=== PATIENT | male | born 1970 | race Caucasian/White ===

== ENCOUNTER 2019-01-09 16:11 | Observation (INO) ==
--- NOTE | 2019-01-09 16:38 | Emergency Department Note ---
Disposition Clinical Impression: Cholecystitis Disposition: Admitted As Inpatient Condition: Fair Referrals: NONE,PCP [Primary Care Provider] - Forms: ED Satisfaction Letter, Work/School Release Time of Disposition: 18:17 Abdominal Pain HPI - General Chief Complaint: ED Abdominal Pain Stated Complaint: abd pain Time Seen by Provider: 01/09/19 16:28 Source: patient Nursing Notes Reviewed: Yes Vital Signs Reviewed: Yes - History of Present Illness HPI Narrative: 48-year-old male presents emergency department with concern for right upper quadrant abdominal pain for the last few days. Patient states it started after eating pizza. Reports that he was seen in outside facility where he had a negative gallbladder ultrasound. Patient reports that the abdominal pain is sharp and radiates up his chest wall. Patient reports never feeling this way before. He denies any fevers, shortness of breath, does endorse nausea, vomiting. Pain Scale: 0 - Related Data Allergies Allergy/AdvReac Type Severity Reaction Status Date / Time No Known Allergies Allergy Verified 01/09/19 16:17 All systems ED: reviewed and negative except as stated. Review of Systems: As Per HPI Constitutional: Denies: fever Cardiovascular: Denies: chest pain Respiratory: Denies: cough, dyspnea Gastrointestinal: Reports: abdominal pain, nausea, vomiting Genitourinary: Denies: dysuria, hematuria Musculoskeletal: Denies: back pain Neurological: Denies: weakness, numbness, paresthesias Abdominal Pain PMH - Past Medical History Medical history: Reports: no medical history Physical Exam - General Limitations: no limitations General appearance: alert, in no apparent distress - Head Head exam: normocephalic - Eye Eye exam: Present: EOMI. Absent: scleral icterus - ENT ENT exam: mucous membranes moist - Neck Neck exam: Present: trachea midline - Chest Chest inspection: Present: symmetric chest wall rise - Respiratory Respiratory exam: Present: normal lung sounds bilaterally. Absent: respiratory distress, accessory muscle use - Cardiovascular Cardiovascular exam: Present: tachycardia - Abdominal Exam Abdominal exam: Present: soft, tenderness, Tolentino's sign. Absent: distention, guarding, rebound, rigidity Abdominal tenderness: Present: RUQ, moderate - Extremities Exam Extremities exam: Present: normal capillary refill - Back Exam Back exam: Present: full ROM. Absent: CVA tenderness (R), CVA tenderness (L) - Neurological Exam Neurological exam: Present: alert, oriented X3 - Psychiatric Psychiatric exam: Present: normal affect, normal mood - Skin Skin exam: Present: warm, dry, intact, normal color. Absent: rash Course Vital Signs Temperature 98.0 F 01/09/19 16:15 Pulse Rate 113 01/09/19 16:15 Respiratory Rate 16 01/09/19 16:15 Blood Pressure 148/91 01/09/19 16:15 O2 Sat by Pulse Oximetry 96 01/09/19 16:15 Temperature 98.0 F 01/09/19 16:56 Pulse Rate 113 01/09/19 16:56 Respiratory Rate 16 01/09/19 16:56 Blood Pressure 148/91 01/09/19 16:56 O2 Sat by Pulse Oximetry 96 01/09/19 16:56 Oxygen Delivery Oxygen Delivery Room Air Procedures - Ultrasound-Other Narrative: Bedside emergency department ultrasound reveals evidence of cholelithiasis. There is also a positive Tolentino sign with some sludge within the lumen of the gallbladder. Common bile duct is not visualized due to acoustic shadowing from the gallstone. No evidence of pericholecystic fluid Abdominal Pain - MDM Narrative Medical decision making narrative: 48-year-old male presents emergency department with concern for right upper quadrant abdominal pain. Patient is mildly tachycardic on initial exam. We obtain CT scan of abdomen and pelvis revealed evidence of cholecystitis. There was also evidence of possible atelectasis versus pneumonia. Do not suspect pneumonia as clinical picture is more towards cholecystitis and due to his discomfort, patient's breathing may have been splinted leading to atelectasis. We also obtain an ECG as the pain radiated upwards into the chest. ECG did not reveal any evidence of acute ischemic changes. Troponin was negative. D-dimer was mildly elevated, but in the setting of cholecystitis, this is expected. Patient was given fluids here in the emergency department as well as pain medication. We started Zosyn. Patient admitted to Dr. Zhang, general surgeon. Abdomen/Pelvis CT 01/09/19 16:38 IMPRESSION: 1. Some distention of the gallbladder, cholelithiasis and gallbladder wall thickening raises the possibility of acute cholecystitis. 2. Diffuse fatty infiltration of the liver. 3. No acute gastrointestinal abnormality. 4. Right lower lobe infiltrate/atelectasis. Minimal atelectasis left lower lobe. RECOMMENDATIONS: Gallbladder ultrasound. D/ / 01/09/2019 17:13:54 Rylee Lowe MD / jose carlos Interpreting Provider: Rylee Lowe MD - Lab Data Result diagrams: 01/09/19 16:49 01/09/19 16:49 Lab Results 01/09/19 01/09/19 01/09/19 Range/Units 16:40 16:49 16:49 WBC 13.7 H (4.3-11.1) K/mcL RBC 5.18 (4.19-5.50) M/mcL Hgb 16.1 (12.9-16.9) g/dL Hct 47.1 (37.5-50.1) % MCV 90.9 (83.0-100.0) fL MCH 31.1 (28.0-33.3) pg MCHC 34.2 (31.6-35.5) g/dL RDW 12.5 (11.5-14.5) % Plt Count 227 (140-400) K/mcL MPV 11.2 (9.4-12.4) fL Immature Gran % 0.4 (0-4) % Seg Neutrophils % 72.0 % Lymphocytes % 16.0 % Monocytes % 9.4 % Eosinophils % 1.8 % Basophils % 0.4 % Neutrophils # 9.9 H (1.6-8.9) K/mcL Lymphocytes # 2.2 (0.6-4.6) K/mcL Monocytes # 1.3 (0.0-1.3) K/mcL Eosinophils # 0.2 (0.0-0.6) K/mcL Basophils # 0.1 (0.0-0.2) K/mcL D-Dimer 825 H (0-500) ng/mLFEU Sodium (136-145) mEq/L Potassium (3.5-5.1) mEq/L Chloride (98-107) mEq/L Carbon Dioxide (23-29) mEq/L BUN (6-20) mg/dL Creatinine (0.70-1.30) mg/dL Est GFR ( Amer) (> 60) Est GFR (Non-Af Amer) (> 60) BUN/Creatinine Ratio (6-26) Glucose (70-105) mg/dL Calculated Osmolality (280-300) Lactic Acid (0.5-2.2) mmol/L Calcium (8.6-10.3) mg/dL Total Bilirubin (0.3-1.0) mg/dL AST (13-39) Units/L ALT (7-52) Units/L Alkaline Phosphatase (34-104) Units/L Troponin I (< 0.04) ng/mL Serum Total Protein (6.4-8.9) g/dL Albumin (3.5-5.7) g/dL Globulin (2.4-3.5) g/dL Albumin/Globulin Ratio (1.1-2.2) Lipase (11-82) Units/L Urine Color Dark Yellow (Yellow) Urine Clarity Clear (Clear) Urine pH 6.0 (5.0-8.0) pH Units Ur Specific [place] > 1.030 H (1.010-1.025) Urine Protein 30 H (Neg-Trace) mg/dL Urine Glucose (UA) Normal (Normal) mg/dL Urine Ketones Negative (Negative) mg/dL Urine Blood Negative (Negative) Urine Nitrite Negative (Negative) Urine Bilirubin Small H (Negative) Urine Urobilinogen Normal (Normal) mg/dL Ur Leukocyte Esterase Negative (Negative) Urine Microscopic RBC 5-15 H (0-3) per hpf Urine Microscopic WBC 3-5 H (0-3) per hpf Ur Squamous Epith Cells Many H (None-Few) per lpf Urine Bacteria None Seen (None-Few) per hpf Hyaline Casts None Seen (None-Few) per lpf Ur Culture Indicated? NO (NO) 01/09/19 01/09/19 Range/Units 16:49 17:11 WBC (4.3-11.1) K/mcL RBC (4.19-5.50) M/mcL Hgb (12.9-16.9) g/dL Hct (37.5-50.1) % MCV (83.0-100.0) fL MCH (28.0-33.3) pg MCHC (31.6-35.5) g/dL RDW (11.5-14.5) % Plt Count (140-400) K/mcL MPV (9.4-12.4) fL Immature Gran % (0-4) % Seg Neutrophils % % Lymphocytes % % Monocytes % % Eosinophils % % Basophils % % Neutrophils # (1.6-8.9) K/mcL Lymphocytes # (0.6-4.6) K/mcL Monocytes # (0.0-1.3) K/mcL Eosinophils # (0.0-0.6) K/mcL Basophils # (0.0-0.2) K/mcL D-Dimer (0-500) ng/mLFEU Sodium 138 (136-145) mEq/L Potassium 3.7 (3.5-5.1) mEq/L Chloride 104 (98-107) mEq/L Carbon Dioxide 26 (23-29) mEq/L BUN 19 (6-20) mg/dL Creatinine 1.14 (0.70-1.30) mg/dL Est GFR ( Amer) > 60 (> 60) Est GFR (Non-Af Amer) > 60 (> 60) BUN/Creatinine Ratio 17 (6-26) Glucose 97 (70-105) mg/dL Calculated Osmolality 288 (280-300) Lactic Acid 0.9 (0.5-2.2) mmol/L Calcium 8.9 (8.6-10.3) mg/dL Total Bilirubin 1.0 (0.3-1.0) mg/dL AST 15 (13-39) Units/L ALT 22 (7-52) Units/L Alkaline Phosphatase 71 (34-104) Units/L Troponin I < 0.03 (< 0.04) ng/mL Serum Total Protein 6.8 (6.4-8.9) g/dL Albumin 3.9 (3.5-5.7) g/dL Globulin 2.9 (2.4-3.5) g/dL Albumin/Globulin Ratio 1.3 (1.1-2.2) Lipase 38 (11-82) Units/L Urine Color (Yellow) Urine Clarity (Clear) Urine pH (5.0-8.0) pH Units Ur Specific [place] (1.010-1.025) Urine Protein (Neg-Trace) mg/dL Urine Glucose (UA) (Normal) mg/dL Urine Ketones (Negative) mg/dL Urine Blood (Negative) Urine Nitrite (Negative) Urine Bilirubin (Negative) Urine Urobilinogen (Normal) mg/dL Ur Leukocyte Esterase (Negative) Urine Microscopic RBC (0-3) per hpf Urine Microscopic WBC (0-3) per hpf Ur Squamous Epith Cells (None-Few) per lpf Urine Bacteria (None-Few) per hpf Hyaline Casts (None-Few) per lpf Ur Culture Indicated? (NO) - EKG Data EKG attestation: Yes I reviewed and interpreted this EKG. EKG results narrative: 16:47 Heart rate 106 bpm, UT interval 149 ms, QRS duration 93 ms, QT 329 ms, normal axis. No evidence of any ischemic ST changes. Attestation Statement - Attestation Attestation: I, Colt Soto DO, examined this patient [id number] and my medical decision-making was reviewed with Dr. Jeff Alamo, Resident Physician. I agree with the documented findings, disposition and treatment plan as described except to the extent set forth below. I personally supervised and was present for the de la cruz/critical portions of the procedures completed by the resident documented below. Please see my progress notes for details.
[2019-01-09] MEDS ORDERED: Ondansetron 4 MG/2 ML VIAL IVP ONE (16:40)
[2019-01-09] MEDS ORDERED: 0.9 % Sodium Chloride 1,000 ML IVC ONE (16:40)
[2019-01-09] MEDS ORDERED: Pantoprazole 40 MG VIAL IVP ONE (16:40)
[2019-01-09] MEDS ORDERED: Morphine Sulfate 2 MG/ML SYRINGE IVP ONE (16:41)
[2019-01-09 16:49] LABS: Bilirubin,Urine Small (Negative); Blood,Urine Negative (Negative); Clarity,Urine Clear (Clear); Color,Urine Dark Yellow (Yellow); Glucose,Urine (UA) Normal (Normal); Ketones,Urine Negative (Negative); Leukocyte Esterase,Urine Negative (Negative); Nitrite,Urine Negative (Negative); Protein,Urine 30 mg/dL (Neg-Trace); Specific Gravity,Urine > 1.030 (1.010-1.025); Urobilinogen,Urine Normal (Normal)
[2019-01-09 16:51] LABS: Bacteria,Urine None Seen per hpf (None-Few); Hyaline Casts,Urine None Seen per lpf (None-Few); Squamous Epithelial Cell,Urine Many per lpf (None-Few)
[2019-01-09 17:09] LABS: Basophils # 0.1 K/mcL (0.0-0.2); Basophils % 0.4 %; Eosinophils # 0.2 K/mcL (0.0-0.6); Eosinophils % 1.8 %; Hematocrit 47.1 % (37.5-50.1); Hemoglobin 16.1 g/dL (12.9-16.9); Immature Granulocytes % 0.4 % (0-4); Lymphocytes # 2.2 K/mcL (0.6-4.6); Mean Corpuscular HGB Conc 34.2 g/dL (31.6-35.5); Mean Corpuscular Hemoglobin 31.1 pg (28.0-33.3); Mean Corpuscular Volume 90.9 fL (83.0-100.0); Mean Platelet Volume 11.2 fL (9.4-12.4); Monocytes # 1.3 K/mcL (0.0-1.3); Monocytes % 9.4 %; Neutrophils # 9.9 K/mcL (1.6-8.9); Platelet Count 227 K/mcL (140-400); Red Blood Count 5.18 M/mcL (4.19-5.50); Red Cell Distribution Width 12.5 % (11.5-14.5); White Blood Count 13.7 K/mcL (4.3-11.1)
--- NOTE | 2019-01-09 17:11 | Emergency Department Note ---
Disposition Clinical Impression: Cholecystitis Disposition: Admitted As Inpatient Condition: Fair Time of Disposition: 18:33 General Adult HPI - General Chief complaint: ED Abdominal Pain Stated complaint: abd pain Time Seen by Provider: 01/09/19 16:28 Source: patient Limitations: no limitations - History of Present Illness Pain Scale: 7 - Related Data Home Medications Medication Instructions Recorded Confirmed No Known Home Drugs 01/09/19 01/09/19 Allergies Allergy/AdvReac Type Severity Reaction Status Date / Time No Known Allergies Allergy Verified 01/09/19 16:17 Constitutional: Denies: fever Cardiovascular: Denies: chest pain Respiratory: Denies: cough, dyspnea Gastrointestinal: Reports: abdominal pain, nausea, vomiting Genitourinary: Denies: dysuria, hematuria Musculoskeletal: Denies: back pain Neurological: Denies: weakness, numbness, paresthesias Past Medical History - Past Medical History Medical history: Reports: hypertension Psychiatric history: Reports: no psych history - Social History Smoking Status: Never smoker Alcohol use: Reports: none Drug use: Reports: none Physical Exam - General Limitations: no limitations General appearance: alert, in no apparent distress Course Vital Signs Temperature 98.0 F 01/09/19 16:15 Pulse Rate 113 01/09/19 16:15 Respiratory Rate 16 01/09/19 16:15 Blood Pressure 148/91 01/09/19 16:15 O2 Sat by Pulse Oximetry 96 01/09/19 16:15 Temperature 98.0 F 01/09/19 16:56 Pulse Rate 94 01/09/19 18:17 Respiratory Rate 17 01/09/19 18:17 Blood Pressure 147/90 01/09/19 18:17 O2 Sat by Pulse Oximetry 97 01/09/19 18:17 Oxygen Delivery Oxygen Delivery Room Air Medical Decision Making - Lab Data Result diagrams: 01/09/19 16:49 01/09/19 16:49 Lab Results 01/09/19 01/09/19 01/09/19 Range/Units 16:40 16:49 16:49 WBC 13.7 H (4.3-11.1) K/mcL RBC 5.18 (4.19-5.50) M/mcL Hgb 16.1 (12.9-16.9) g/dL Hct 47.1 (37.5-50.1) % MCV 90.9 (83.0-100.0) fL MCH 31.1 (28.0-33.3) pg MCHC 34.2 (31.6-35.5) g/dL RDW 12.5 (11.5-14.5) % Plt Count 227 (140-400) K/mcL MPV 11.2 (9.4-12.4) fL Immature Gran % 0.4 (0-4) % Seg Neutrophils % 72.0 % Lymphocytes % 16.0 % Monocytes % 9.4 % Eosinophils % 1.8 % Basophils % 0.4 % Neutrophils # 9.9 H (1.6-8.9) K/mcL Lymphocytes # 2.2 (0.6-4.6) K/mcL Monocytes # 1.3 (0.0-1.3) K/mcL Eosinophils # 0.2 (0.0-0.6) K/mcL Basophils # 0.1 (0.0-0.2) K/mcL D-Dimer 825 H (0-500) ng/mLFEU Sodium (136-145) mEq/L Potassium (3.5-5.1) mEq/L Chloride (98-107) mEq/L Carbon Dioxide (23-29) mEq/L BUN (6-20) mg/dL Creatinine (0.70-1.30) mg/dL Est GFR ( Amer) (> 60) Est GFR (Non-Af Amer) (> 60) BUN/Creatinine Ratio (6-26) Glucose (70-105) mg/dL Calculated Osmolality (280-300) Lactic Acid (0.5-2.2) mmol/L Calcium (8.6-10.3) mg/dL Total Bilirubin (0.3-1.0) mg/dL AST (13-39) Units/L ALT (7-52) Units/L Alkaline Phosphatase (34-104) Units/L Troponin I (< 0.04) ng/mL Serum Total Protein (6.4-8.9) g/dL Albumin (3.5-5.7) g/dL Globulin (2.4-3.5) g/dL Albumin/Globulin Ratio (1.1-2.2) Lipase (11-82) Units/L Urine Color Dark Yellow (Yellow) Urine Clarity Clear (Clear) Urine pH 6.0 (5.0-8.0) pH Units Ur Specific [place] > 1.030 H (1.010-1.025) Urine Protein 30 H (Neg-Trace) mg/dL Urine Glucose (UA) Normal (Normal) mg/dL Urine Ketones Negative (Negative) mg/dL Urine Blood Negative (Negative) Urine Nitrite Negative (Negative) Urine Bilirubin Small H (Negative) Urine Urobilinogen Normal (Normal) mg/dL Ur Leukocyte Esterase Negative (Negative) Urine Microscopic RBC 5-15 H (0-3) per hpf Urine Microscopic WBC 3-5 H (0-3) per hpf Ur Squamous Epith Cells Many H (None-Few) per lpf Urine Bacteria None Seen (None-Few) per hpf Hyaline Casts None Seen (None-Few) per lpf Ur Culture Indicated? NO (NO) 01/09/19 01/09/19 Range/Units 16:49 17:11 WBC (4.3-11.1) K/mcL RBC (4.19-5.50) M/mcL Hgb (12.9-16.9) g/dL Hct (37.5-50.1) % MCV (83.0-100.0) fL MCH (28.0-33.3) pg MCHC (31.6-35.5) g/dL RDW (11.5-14.5) % Plt Count (140-400) K/mcL MPV (9.4-12.4) fL Immature Gran % (0-4) % Seg Neutrophils % % Lymphocytes % % Monocytes % % Eosinophils % % Basophils % % Neutrophils # (1.6-8.9) K/mcL Lymphocytes # (0.6-4.6) K/mcL Monocytes # (0.0-1.3) K/mcL Eosinophils # (0.0-0.6) K/mcL Basophils # (0.0-0.2) K/mcL D-Dimer (0-500) ng/mLFEU Sodium 138 (136-145) mEq/L Potassium 3.7 (3.5-5.1) mEq/L Chloride 104 (98-107) mEq/L Carbon Dioxide 26 (23-29) mEq/L BUN 19 (6-20) mg/dL Creatinine 1.14 (0.70-1.30) mg/dL Est GFR ( Amer) > 60 (> 60) Est GFR (Non-Af Amer) > 60 (> 60) BUN/Creatinine Ratio 17 (6-26) Glucose 97 (70-105) mg/dL Calculated Osmolality 288 (280-300) Lactic Acid 0.9 (0.5-2.2) mmol/L Calcium 8.9 (8.6-10.3) mg/dL Total Bilirubin 1.0 (0.3-1.0) mg/dL AST 15 (13-39) Units/L ALT 22 (7-52) Units/L Alkaline Phosphatase 71 (34-104) Units/L Troponin I < 0.03 (< 0.04) ng/mL Serum Total Protein 6.8 (6.4-8.9) g/dL Albumin 3.9 (3.5-5.7) g/dL Globulin 2.9 (2.4-3.5) g/dL Albumin/Globulin Ratio 1.3 (1.1-2.2) Lipase 38 (11-82) Units/L Urine Color (Yellow) Urine Clarity (Clear) Urine pH (5.0-8.0) pH Units Ur Specific [place] (1.010-1.025) Urine Protein (Neg-Trace) mg/dL Urine Glucose (UA) (Normal) mg/dL Urine Ketones (Negative) mg/dL Urine Blood (Negative) Urine Nitrite (Negative) Urine Bilirubin (Negative) Urine Urobilinogen (Normal) mg/dL Ur Leukocyte Esterase (Negative) Urine Microscopic RBC (0-3) per hpf Urine Microscopic WBC (0-3) per hpf Ur Squamous Epith Cells (None-Few) per lpf Urine Bacteria (None-Few) per hpf Hyaline Casts (None-Few) per lpf Ur Culture Indicated? (NO) Attestation Statement - Attestation Attestation: I, Colt Soto DO, examined this patient [id number] and my medical decision-making was reviewed with Dr. Jeff Alamo, Resident Physician. I agree with the documented findings, disposition and treatment plan as described except to the extent set forth below. I personally supervised and was present for the de la cruz/critical portions of the procedures completed by the resident documented below. Please see my progress notes for details. 48-year-old male presents emergency room for evaluation of epigastric and right upper quadrant abdominal pain. Patient has had this for several days. He came on after eating pizza. Patient was seen in outside facility yesterday and an ultrasound completed the did not show any acute signs of cholecystitis. There is some statements made by the family member that were on including potential care in the epigastrium. Patient has not had any specific chest pain. Denies any shortness of breath except when the pain comes on. He has had nausea without vomiting, no diarrhea. Currently denying fevers or chills. He has not fallen or injured himself. He has not traveled outside the country or aided any place out of the ordinary. He is never had anything like this in the past. Vital signs reviewed and are stable. Patient does have hypertension at baseline. Lungs are clear heart is regular. Abdomen is soft patient does have significant tenderness in the right upper quadrant and right CVA region. Patient also felt discomfort and pain when he went to urinate today. Denies any blood in his urine. Abdomen otherwise is negative for acute signs of peritonitis or abnormality. No crepitus deformity or injury noted to the extremities. Pulses are intact. Patient is acting appropriately. No other acute issues at this point. Ultrasound by bedside evaluation will be completed along with CT imaging of the abdomen. EKG chest x-ray CBC chemistry troponin along with d-dimer will be collected and resulted. Symptomatic control fluids and pain medication will be completed. EKG was reviewed by myself in documented in the resident physician's note. See detailed documentation the physical exam, medical intervention, medical decision-making and disposition in the resident physician's documentation. No critical care applied the patient's treatment course at this time. 1815 CT scan shows concerning for gallbladder dilation along with a gallbladder stone. No signs of LFT abnormality. Bedside point of care ultrasound does confirm gallbladder stone but no specific signs of pericholecystic fluid. Based on the describes symptoms and presentation discussion was had with the on-call surgeon. He agreed with surgical evaluation possible surgical intervention. No other acute issues noted this point. IV antibiotics will be ordered at the discretion. Patient is otherwise clinically stable. Symptomatic control has been completed. No other acute issues noted this time. Patient will be monitored here in the emergency department until the admission processes established what appears to be acute cholecystitis
[2019-01-09 17:27] LABS: Alanine Aminotransferase 22 Units/L (7-52); Albumin 3.9 g/dL (3.5-5.7); Albumin/Globulin Ratio 1.3 (1.1-2.2); Alkaline Phosphatase 71 Units/L (34-104); Aspartate Amino Transferase 15 Units/L (13-39); BUN/Creatinine Ratio 17 (6-26); Blood Urea Nitrogen 19 mg/dL (6-20); Calcium 8.9 mg/dL (8.6-10.3); Carbon Dioxide 26 mEq/L (23-29); Chloride 104 mEq/L (98-107); Globulin 2.9 g/dL (2.4-3.5); Glucose 97 mg/dL (70-105); Lipase 38 Units/L (11-82); Osmolality,Calculated 288 (280-300); Potassium 3.7 mEq/L (3.5-5.1); Sodium 138 mEq/L (136-145); Total Protein 6.8 g/dL (6.4-8.9); Troponin I < 0.03 ng/mL (< 0.04); eGFR For African Americans > 60 (> 60); eGFR For Non-African Americans > 60 (> 60)
[2019-01-09] MEDS ORDERED: Piperacillin/Tazobactam 3.375 GM in Water for inj. (sterile) 20 ML IVP ONE (18:00)
[2019-01-09] MEDS ORDERED: Ondansetron 4 MG/2 ML VIAL IVP PRN (19:35)
--- NOTE | 2019-01-09 19:43 | Acute Care Surgery H&P ---
Date of Encounter: 01/09/19 Time of Encounter: 19:20 Assessment and Plan (1) Cholecystitis, acute with cholelithiasis Current Visit: Yes Status: Acute The assessment and plan as outlined above was discussed with the patient and/or family members who expressed understanding and agreement. All questions were answered. The patient has acute cholecystitis and cholelithiasis. He would benefit from a short course of antibiotic therapy followed by laparoscopic cholecystectomy. I discussed the risks and benefits with him. We will plan on proceeding tomorrow. Qualifiers: Biliary obstruction: without biliary obstruction Qualified Code(s): K80.00 - Calculus of gallbladder with acute cholecystitis without obstruction History of Present Illness Chief complaint: Right upper quadrant abdominal pain HPI: Mr. Davidson is a 48 year old male Who is been having indigestion and intermittent postprandial nausea for many years. For the last several days he is had right upper quadrant pain and has been unrelenting and radiating to his epigastrium and chest. He sought evaluation in the emergency department. CAT scan demonstrated pericholecystic fluid and cholelithiasis consistent with acute cholecystitis. A follow-up bedside ultrasound confirmed pericholecystic fluid and cholelithiasis. Next The patient denies shakes chills or fever. Patient complains of 7 out of 10 right upper quadrant pain radiating through to his back. He is hungry and would like to have some clear liquids. He denies episodes of jaundice. He now p resents for treatment of acute cholecystitis with cholelithiasis Past Med Surg Social Fam HX - Past Medical History Medical history: hypertension Psychiatric history: no psych history - Past Surgical History Surgical History: herniorrhaphy - Social History Smoking Status: Current every day smoker Packs per day: 1/2 Smokeless Tobacco Status: No Alcohol use: none Drug use: none Medications and Allergies No Known Home Drugs 01/09/19 [History] Allergy/AdvReac Type Severity Reaction Status Date / Time No Known Allergies Allergy Verified 01/09/19 16:17 Review of Systems All systems PM: The remainder of the systems were reviewed and are negative General Surgery Exam Initial Vital Signs Temp Pulse Resp BP Pulse Ox 98.0 F 113 16 148/91 96 01/09/19 16:15 01/09/19 16:15 01/09/19 16:15 01/09/19 16:15 01/09/19 16:15 - General physical appearance well developed, well nourished, moderate pain - Neck no masses, no bruits, trachea midline, no lymphadectomy, no venous distension - Respiratory normal expansion, normal respiratory effort, clear to percussion, clear to auscultation - Cardiovascular Cardiovascular exam: Present: RRR, no murmurs/rubs/gallops - Abdomen Abdomen general surgery: Present: bowel sounds present, soft, tender (Mild positive Tolentino sign) Abdominal Tenderness: Present: RUQ - Integumentary Integumentary general surgery: Present: warm and dry, no abnormal pigmentation, other (No evidence of jaundice) - Neurologic Present: CN 2-12 grossly intact, normal coordination, normal sensation - Psychiatric Psychiatric general surgery: Present: appropriate, oriented to person, oriented to place, oriented to time, speech is normal, memory intact Results - Labs 01/09/19 16:49 01/09/19 16:49 Abnormal lab results WBC 13.7 K/mcL (4.3-11.1) H 01/09/19 16:49 Neutrophils # 9.9 K/mcL (1.6-8.9) H 01/09/19 16:49 D-Dimer 825 ng/mLFEU (0-500) H 01/09/19 16:49 Ur Specific [place] > 1.030 (1.010-1.025) H 01/09/19 16:40 Urine Protein 30 mg/dL (Neg-Trace) H 01/09/19 16:40 Urine Bilirubin Small (Negative) H 01/09/19 16:40 Urine Microscopic RBC 5-15 per hpf (0-3) H 01/09/19 16:40 Urine Microscopic WBC 3-5 per hpf (0-3) H 01/09/19 16:40 Ur Squamous Epith Cells Many per lpf (None-Few) H 01/09/19 16:40 Diabetes panel 01/09/19 Range/Units 16:49 Sodium 138 (136-145) mEq/L Potassium 3.7 (3.5-5.1) mEq/L Chloride 104 (98-107) mEq/L Carbon Dioxide 26 (23-29) mEq/L BUN 19 (6-20) mg/dL Creatinine 1.14 (0.70-1.30) mg/dL Glucose 97 (70-105) mg/dL Calcium 8.9 (8.6-10.3) mg/dL AST 15 (13-39) Units/L ALT 22 (7-52) Units/L Alkaline Phosphatase 71 (34-104) Units/L Albumin 3.9 (3.5-5.7) g/dL Calcium panel 01/09/19 Range/Units 16:49 Calcium 8.9 (8.6-10.3) mg/dL Albumin 3.9 (3.5-5.7) g/dL Pituitary panel 01/09/19 Range/Units 16:49 Sodium 138 (136-145) mEq/L Potassium 3.7 (3.5-5.1) mEq/L Chloride 104 (98-107) mEq/L Carbon Dioxide 26 (23-29) mEq/L BUN 19 (6-20) mg/dL Creatinine 1.14 (0.70-1.30) mg/dL Glucose 97 (70-105) mg/dL Calcium 8.9 (8.6-10.3) mg/dL Adrenal panel 01/09/19 Range/Units 16:49 Sodium 138 (136-145) mEq/L Potassium 3.7 (3.5-5.1) mEq/L Chloride 104 (98-107) mEq/L Carbon Dioxide 26 (23-29) mEq/L BUN 19 (6-20) mg/dL Creatinine 1.14 (0.70-1.30) mg/dL Glucose 97 (70-105) mg/dL Calcium 8.9 (8.6-10.3) mg/dL Total Bilirubin 1.0 (0.3-1.0) mg/dL AST 15 (13-39) Units/L ALT 22 (7-52) Units/L Alkaline Phosphatase 71 (34-104) Units/L Albumin 3.9 (3.5-5.7) g/dL All other labs normal. - Imaging CT scan - abdomen: image reviewed (I personally reviewed the CAT scan of the abdomen. He does have pericholecystic fluid and gallbladder distention with gallstones in the neck the gallbladder. Findings consistent with acute cholecystitis and cholelithiasis. There is no evidence of extrahepatic ductal dilatation)
[2019-01-09] MEDS: 0.9 % Sodium Chloride 1,000 ML IVC SCH (21:00)
[2019-01-10] MEDS: Piperacillin/Tazobactam 3.375 GM in 0.9 % Sodium Chloride Mini Bag 100 ML IVPB SCH ×2 (00:18→08:31)
[2019-01-10] MEDS ORDERED: *HR* Heparin 5,000 UNIT/ML VIAL SQ SCH (06:00)
[2019-01-10] MEDS: 0.9 % Sodium Chloride 1,000 ML IVC SCH (07:31)
[2019-01-10] MEDS ORDERED: Nicotine 7 MG PATCH.TD24 TD SCH (13:55)
[2019-01-10] MEDS ORDERED: Ipratropium/Albuterol Neb 3 ML IH ONE (13:58)
--- NOTE | 2019-01-10 14:46 | Anesthesia Evaluation PreOp ---
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: Denies Any Significant HX Other Medical History: Other (OBESITY) Anesthesia History: No Prior Anesthetic Complications, Past Anesthesia (HERNIA) Alcohol Use: none Drug use: none Medications and Allergies No Known Home Drugs 01/09/19 [History] Allergy/AdvReac Type Severity Reaction Status Date / Time No Known Allergies Allergy Verified 01/09/19 16:17 - Meds/Allergy Pre-op Review Medications Reviewed: Yes Allergies Reviewed: Yes Beta Blockers on Current Med List: No Anesthesia Results - Labs 01/09/19 16:49 01/09/19 16:49 Anesthesia Exam Vital Signs/O2 Sat, Most Current Temp Pulse Resp BP Pulse Ox 98.2 F 92 17 161/93 92 01/10/19 14:32 01/10/19 14:32 01/10/19 14:32 01/10/19 14:32 01/10/19 14:32 Weight: 95 KG - BMI 31 NPO (# of Hours): 8 - Cardiac Rhythm: Regular - Pulmonary Breath Sounds: bilateral Clear Anesthesia Assess/Plan ASA Score: 2 Anesthetic Plan: General Monitoring Plan: Standard Monitors Recovery Plan: PACU <Vijay Bundy - Last Filed: 01/10/19 16:06> Date of Encounter: 01/10/19 Anesthesia Results - Labs 01/09/19 16:49 01/09/19 16:49 Anesthesia Exam - HEENT Pupil (Motor): Pupils equal, EOMI Mallampati: III Teeth: Normal Oral Opening: Greater than 3 - MECHANICAL EQUIPMENT TEST ENGINEER LOC: Oriented MECHANICAL EQUIPMENT TEST ENGINEER Motor: Normal RUE, Normal LUE, Normal RLE, Normal LLE, Normal Face MECHANICAL EQUIPMENT TEST ENGINEER Sensory: Normal: RUE, LUE, RLE, LLE, Face - Cardiac Rhythm: Regular Murmur: None JVD: No Carotid Bruit: No - Pulmonary Breath Sounds: bilateral Clear Respiratory Effort: Symmetrical Anesthesia Assess/Plan ASA Score: 2 Level of consciousness: Cooperative Autologous Blood: Yes
--- NOTE | 2019-01-10 15:33 | Electrocardiograph Report ---
[address] [address] Test Date: 2019-01-09 Pat Name: Fabián Davidson Department: [id number] Room: 3A Gender: Specialty Therapist: : 1970 Requested By: Jeff Alamo Order Number: [id number] Reading MD: Higinio Castle Measurements Intervals Stanley Rate: 106 P: 58 ID: [id number] QRS: 28 QRSD: 93 T: 26 QT: 329 QTc: 437 Interpretive Statements Sinus tachycardia Electronically Signed On 01-10-2019 15:32:14 EDT by Higinio Castle
[2019-01-10] MEDS ORDERED: Isovue-300 50 ML VIAL ONE (15:59)
[2019-01-10] MEDS ORDERED: Albuterol 2.5 MG/3 ML NEBULIZER IH ONE (16:05)
[2019-01-10] MEDS ORDERED: Lidocaine -MPF 2% 2 ML VIAL ONE (16:32)
[2019-01-10] MEDS ORDERED: Dexamethasone 4 MG/ML VIAL ONE (16:32)
[2019-01-10] MEDS ORDERED: *HR* Rocuronium Bromide 50 MG/5 ML VIAL ONE ×2 (16:32→17:22)
[2019-01-10] MEDS ORDERED: Ondansetron 4 MG/2 ML VIAL ONE (16:32)
[2019-01-10] MEDS ORDERED: *HR* Propofol 200 MG/20 ML VIAL IVP ONE (16:32)
[2019-01-10] MEDS ORDERED: *HR* FentaNYL (PF) 100 MCG/2 ML VIAL ONE ×2 (16:35→17:03)
[2019-01-10] MEDS ORDERED: *HR* Midazolam HCl 2 MG/2 ML VIAL ONE (16:35)
[2019-01-10] MEDS ORDERED: Neostigmine Methylsulfate 3 MG/3 ML SYRINGE ONE (17:24)
[2019-01-10] MEDS ORDERED: *HR* Labetalol 20 MG/4 ML SYRINGE IVP ONE (18:49)
[2019-01-10] MEDS: *HR* Labetalol 20 MG/4 ML SYRINGE IVP PRN ×2 (18:50→19:05)
--- NOTE | 2019-01-10 19:50 | AcuteCareSurgery Progress Note ---
Date of Encounter: 01/10/19 Time of Encounter: 19:46 - Assessment and Plan (1) Cholecystitis Current Visit: Yes Status: Acute 48M with acute cholecystitis s/p robotic cholecystectomy with iOC; no issues intraoperatively; gallbladder acutely inflammed; CLD; ADAT IVF: SLIV when tolerating PO activity as tolerated PO pain control IV abx until 0800 plan for D/c IN am Subjective Patient reports: no new complaints, feels better, still having pain, pain is less Objective Vital Signs - Last 8 Hours Temp Pulse Resp BP Pulse Ox 01/10/19 19:21 86 16 165/101 92 01/10/19 19:14 98.3 F 82 16 165/103 93 01/10/19 19:04 85 16 167/107 94 01/10/19 18:54 85 16 175/104 92 01/10/19 18:44 98.4 F 97 16 186/117 93 01/10/19 18:34 86 16 173/102 94 01/10/19 18:24 92 16 170/98 94 01/10/19 18:14 98.2 F 87 15 162/101 95 01/10/19 14:32 98.2 F 92 17 161/93 92 Intake and Output 01/10/19 01/10/19 01/10/19 07:59 15:59 23:59 Intake Total 1100 / 1200 100 / 1200 Output Total 10 / 10 Balance 1100 / 1190 100 / 1190 -10 / 1190 Intake: IV Fluids 1100 / 1200 100 / 1200 0.9 % Sodium Chloride 1,000 ML 1000 / 1000 @ 100 mls/hr IVC .Q10H [facility] Rx#: [id number] Zosyn 3.375 GM In 0.9 % Sodium 100 / 200 100 / 200 Chloride (Mini-Bag +) 100 ML @ 25 mls/hr IVPB Q8HR [facility] Rx#: [id number] Oral 0 / 0 Output: Urine 0 / 0 Estimated Blood Loss 10 / 10 Other: Meal NPO Percent of Meal Consumed 0% # Voids 1 1 Weight 95.4 kg Blood Glucose* 102 83 83 Patient Weight 01/10/19 23:59 Weight 95.4 kg - General physical appearance no distress - Respiratory normal expansion, normal respiratory effort - Cardiovascular Cardiovascular exam: Present: RRR - Abdomen Abdomen: Present: soft, tender Abdominal Tenderness: RUQ - Neurologic CN 2-12 grossly intact - Psychiatric oriented to time, oriented to person, oriented to place - Labs 01/09/19 16:49 01/09/19 16:49 Consult Discharge Plan - Plan Referrals: NONE,PCP [Primary Care Provider] -
[2019-01-10] MEDS ORDERED: 0.9 % Sodium Chloride 1,000 ML IVC SCH (19:51)
[2019-01-10] MEDS ORDERED: Ondansetron 4 MG/2 ML VIAL IVP PRN (19:51)
--- NOTE | 2019-01-10 19:54 | Operative Note ---
Date of procedure: 01/10/19 Pre-op diagnosis: acute cholecystitis Post-op diagnosis: same Procedure: robotic cholecystectomy intraoperative cholangiogram Implants: none Complications: none Anesthesia: GETA Local Anesthetics: 0.5% Sensorcaine HCL SubQ (cc) Surgeon: Gaudencio Juarez Was there an assistant professor of religion present: Yes Varnish Melter: Ofe Kenney Estimated blood loss (cc): 10 Specimen: gallbladder and contents Condition: stable Disposition: PACU Procedure in Detail: The patient was brought into the operating room suite and was placed in the supine position. Mechanical DVT prophylaxis was applied. A time-in was conducted. The patient underwent smooth induction of anesthesia. Preoperative antibiotics were given. The patient was prepped and draped in the usual f ashion. A time-out was held identifying the correct patient, pathology, and procedure. Everyone was in agreement and we began the procedure. Incision to Dissection I started by creating a 12mm supraumbilical incision. Via open Nathaniel technique I did enter into the abdomen. I inserted the 12mm trocar followed by the 30 degree camera, ensured that I did not cause intraabdominal injury upon entry, and quickly identified the gallbladder. I created a 5mm incisions one handbreadth to the left and right of the umbilical incision and an assistant professor of religion port along the R anterior axillary line. I then docked the robot in the usual fashion. Using laparoscopic graspers I managed to elevate the gallbladder above the liver. At the Console I grasp the edge of the gallbladder to retract laterally. Using the [place] instrument as well as the hook-electrocautery, I dissected out the cystic duct and the cystic artery. I excised the posterior tissue to visualize the liver. I was able to clearly visualize the critical view of safety. I performed a transcystic cholangiogram with the lucio in the standard fashion. There was flow into the duodeum with the beginnings of the proximal biliary tree. There was concern for a small filling defect just distal to the catheter. With flow going into the duodenum, I elected to not pursue further. I then concluded the cholangiogram and continued with the procedure. Critical view of Safety to Excison of the gallbladder I then clipped both structures using plastic clips, two on the stay side, one on the specimen side. Using robotic scissors, I cut between the clip on the specimen side and the first clip on the stay side. Then using tension and counter-tension, I used the electrocautery to excise the gallbladder off of the liver bed. Before complete excision, I evaluated the liver bed to ensure there 1.) there was no bleeding, 2. No excessive bile leakage, and 3.) to evaluate my clips. There was no bleeding, bile leakage, and the clips were all the way across both duct and artery. Removal of gallbladder to Closure After undocking the robot, I inserted the endocatch bag into the umbilical port. I placed the specimen into the bag and retrieved it through the umbilical port. i then irrgiated the liver bed and above the liver before suctioning both irrigation fluid and air. I removed the 5mm ports, turned off the insufllation, then removed the 12mm umbilical port. I then close the umbilical fascia a vicryl suture in a figure of 8 fashion. All incisions were closed with interrupted 4-0 monocryl and sealed with dermabond. The patient tolerated the procedure well and went back to PACU in stable condition.
[2019-01-10] MEDS: *HR* Metoprolol 5 MG/5 ML VIAL IVP PRN (20:15)
--- NOTE | 2019-01-10 21:00 | Anesthesia Evaluation Post Op ---
Date of Encounter: 01/10/19 Time of Encounter: 20:59 - Vital Signs Vital Signs: Vital Signs/O2 Sat, Most Current Temp Pulse Resp BP Pulse Ox 98.3 F 86 16 165/101 92 01/10/19 19:14 01/10/19 19:21 01/10/19 19:21 01/10/19 19:21 01/10/19 19:21 - Lungs Lungs: Clear Ascult./Percussion - Airway Airway: Non-obstructed - Cardiovascular Regular Rate - Mental Status Mental Status: Baseline Status - Pain Pain Scale: 0 Pain Scale used: Numeric (1 - 10) - Nausea Vomiting Nausea Vomiting: Not Present - Hydration Hydration: Tolerates oral liquids - Discharge PostOp Status: Transfer Patient to floor
[2019-01-11] MEDS: Piperacillin/Tazobactam 3.375 GM in 0.9 % Sodium Chloride Mini Bag 100 ML IVPB SCH ×2 (00:11→08:03)
[2019-01-11] MEDS ORDERED: *HR* Heparin 5,000 UNIT/ML VIAL SQ SCH (06:00)
[2019-01-11 07:20] VITALS: BP 161/95
[2019-01-11] MEDS ORDERED: Ibuprofen 800 MG TABLET PO ONE (08:12)
[2019-01-11] MEDS ORDERED: *HR* OxyCODONE/APAP 5/325 TABLET PO PRN (08:12)
--- NOTE | 2019-01-11 08:17 | Discharge Summary ---
<Tabitha Boland - Last Filed: 01/11/19 08:14> Orders not resulted at time of discharge: Pending orders 01/10/19 18:03 Surgical Pathology [PTH] Routine Date of Encounter: 01/11/19 Time of Encounter: 07:45 - Discharge Diagnosis (1) Cholecystitis, acute with cholelithiasis Priority: Primary Status: Resolved Qualifiers: Biliary obstruction: without biliary obstruction Qualified Code(s): K80.00 - Calculus of gallbladder with acute cholecystitis without obstruction General Surgery Exam Initial Vital Signs Temp Pulse Resp BP Pulse Ox 98.0 F 113 16 148/91 96 01/09/19 16:15 01/09/19 16:15 01/09/19 16:15 01/09/19 16:15 01/09/19 16:15 Vital Signs Temp Pulse Resp BP Pulse Ox 01/11/19 07:20 98.2 F 105 16 161/95 92 01/11/19 03:27 99.1 F 97 17 145/87 92 01/10/19 22:35 98.7 F 86 16 132/76 94 01/10/19 21:35 98.5 F 92 16 141/83 94 01/10/19 20:35 98.6 F 88 16 150/100 94 01/10/19 20:05 98.1 F 89 16 164/100 93 01/10/19 19:35 98.0 F 101 18 171/105 92 01/10/19 19:21 86 16 165/101 92 01/10/19 19:14 98.3 F 82 16 165/103 93 01/10/19 19:04 85 16 167/107 94 01/10/19 18:54 85 16 175/104 92 01/10/19 18:44 98.4 F 97 16 186/117 93 01/10/19 18:34 86 16 173/102 94 01/10/19 18:24 92 16 170/98 94 01/10/19 18:14 98.2 F 87 15 162/101 95 01/10/19 14:32 98.2 F 92 17 161/93 92 01/10/19 10:19 98.3 F 81 17 142/90 92 01/10/19 08:39 98.6 F 83 16 167/98 92 Intake and Output 01/10/19 01/11/19 01/11/19 23:59 07:59 15:59 Intake Total 100 / 100 Output Total 110 / 110 450 / 450 Balance -110 / 1090 -350 / -350 Intake: IV Fluids 100 / 100 Zosyn 3.375 GM In 0.9 % Sodium 100 / 100 Chloride (Mini-Bag +) 100 ML @ 25 mls/hr IVPB Q8HR [facility] Rx#: [id number] Oral 0 / 0 Output: Urine 100 / 100 450 / 450 Estimated Blood Loss Other: Weight 96.1 kg Blood Glucose* 133 Patient Weight 01/11/19 23:59 Weight 96.1 kg VITAL SIGNS: Reviewed. See [facility] GENERAL: In no apparent distress. HEENT: Normocephalic, atraumatic, pupils are equal and reactive, extraocular motions intact, oropharynx is pink and moist, there is no neck adenopathy or JVD noted. CHEST/RESPIRATORY: The thorax is free from signs of trauma. Lung sounds: clear to auscultation, normal respiratory effort CARDIAC: Regular rate and rhythm. Normal S1 and S2, without murmurs, gallops, or rubs. VASCULAR: No Edema. 2+ peripheral pulses. ABDOMEN: soft, expected postoperative tenderness, active bowel sounds INCISION: Surgical incision is clean, dry, and intact. There are no signs of cellulitis or infection noted. MUSCULOSKELETAL: Good range of motion of all major joints. Extremities without clubbing, cyanosis or edema. NEUROLOGIC EXAM: Alert and oriented x 3. Speech normal. Follows commands. PSYCHIATRIC: Mood normal. SKIN: No rash or lesions. - Hospital Course Hospital course: Mr. Davidson is a 48 year old male who presented on 01/09/2019 for right upper quadrant pain. He was found to have acute cholecystitis with cholelithiasis. He was treated with a short course antibiotic therapy and then taken to the operating room on 01/10/2018 where he underwent an uncomplicated robotic cholecystectomy. He is ambulating avoiding without difficulty, tolerating a diet without nausea or vomiting, vital signs are stable, and he is afebrile. We will begin discharge planning to home with a follow-up in the office in approximately 2-3 weeks. 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 We did review that we would repeat discusses return to work date at his follow-up visit. Time spent discussing smoking cessation with patient: 3 to 10 minutes - Time Spent with Patient Total time spent providing and/or coordinating discharge services: - Discharge Medications Prescriptions: New Docusate Sodium [Colace] 100 mg PO BID PRN #30 capsule PRN Reason: Contstipation Ibuprofen 800 mg PO Q8H PRN #30 tablet PRN Reason: Postsurgical pain OxyCODONE/APAP 5/325 [Percocet 5/325 MG] 1 each PO Q6HR PRN 7 Days #28 tablet PRN Reason: Pain Ondansetron ODT [Zofran ODT] 4 mg SL Q4HR PRN #15 tab.rapdis PRN Reason: Postsurgical nausea Continued Promethazine [Phenergan] 25 mg PO Q6-8H PRN PRN Reason: NAUSEA/VOMITING Famotidine [Pepcid] 20 mg PO BID Home Medications: Famotidine [Pepcid] 20 mg PO BID 01/10/19 [History] Promethazine [Phenergan] 25 mg PO Q6-8H PRN 01/10/19 [History] Docusate Sodium [Colace] 100 mg PO BID PRN #30 capsule 01/11/19 [Rx] Ibuprofen 800 mg PO Q8H PRN #30 tablet 01/11/19 [Rx] Ondansetron ODT [Zofran ODT] 4 mg SL Q4HR PRN #15 tab.rapdis 01/11/19 [Rx] OxyCODONE/APAP 5/325 [Percocet 5/325 MG] 1 each PO Q6HR PRN 7 Days #28 tablet 01/11/19 [Rx] Allergies/Adverse Reactions: Allergy/AdvReac Type Severity Reaction Status Date / Time No Known Allergies Allergy Verified 01/10/19 21:15 Date of admission: 01/09/19 18:06 Primary care physician: PCP NONE Discharging clinician: Robyn Quiroga (Sylvia Boland, AUTHOR) Anticipated date of discharge: 01/11/19 Labs on day of discharge: Labs from last 24 hours 01/10/19 01/10/19 12:08 05:14 POC Glucose 83 102 H - Impressions ITS Impressions Abdomen/Pelvis CT 01/09/19 16:38 IMPRESSION: 1. Some distention of the gallbladder, cholelithiasis and gallbladder wall thickening raises the possibility of acute cholecystitis. 2. Diffuse fatty infiltration of the liver. 3. No acute gastrointestinal abnormality. 4. Right lower lobe infiltrate/atelectasis. Minimal atelectasis left lower lobe. RECOMMENDATIONS: Gallbladder ultrasound. D/ / 01/09/2019 17:13:54 Rylee Lowe MD / jose carlos Interpreting Provider: Rylee Lowe MD Cholangiogram,Operative 01/10/19 17:25 IMPRESSION: Small filling defect in the cystic duct of uncertain significance. Critical results were called by Dr. Kevin Pascual MD to Gaudencio Juarez MD on 01/10/2019 at 18:00. D/ / 01/10/2019 18:01:14 Kevin Pascual MD / amberly Interpreting Provider: Kevin Pascual MD - Patient Status Disposition: Home, Self-Care Condition: Fair Functional capacity at discharge: independent ambulation Overall status at discharge: patient is progressing back to baseline - Discharge Instructions Instructions: How to Stop Smoking (DC), Cigarette Smoking and Your Health (GEN), Laparoscopic Cholecystectomy (DC) Follow Up With: Tabitha Boland, BARREL BANDER [Advanced Practice Nurse] - 01/29/19 2:00 pm Additional Instructions: General Surgical Discharge Instructions 1. No pushing, pulling, or lifting greater than 15 lbs for 2-4 weeks (depending upon procedure). 2. You may remove your dressings and shower beginning today, but no tub baths, soaking, or swimming for 2 weeks. 3. No driving for two weeks unless otherwise specified and then you may resume driving when you are off narcotics and are safe to react in a car. 4. Take ibuprofen every 8 hours for discomfort. If this does not relieve discomfort, you may take the as needed Percocet. Eat a small snack with pain medication as this will help reduce the risk of nausea. Take narcotics as directed. Do not take more narcotics then directed and do not share your narcotics with any other person. Do not drink alcohol while on narcotics. You can take the Zofran/ondansetron if needed for nausea or with a dose of narcotics to prevent nausea. 5. Take stool softeners (Colace) or a water based laxative (Miralax) while taking narcotics. You may hold for loose stools. 6. Report any fevers greater than 100.5F, increase abdominal discomfort, drainage that looks like pus, increased redness or pain at the surgical site, or any vomiting. 7. Report any pain in the calves, shortness of breath, or rapid heartbeat. 8. Follow-up in the office as directed. 9. If you were prescribed antibiotics, do not stop them without talking to your provider. - Diet and Activity Activity: increase activity as tolerated (While continuing to follow lifting restrictions) Diet: advance to your usual diet <Shawna JunaidRobyn F - Last Filed: 01/11/19 08:51> Orders not resulted at time of discharge: Pending orders 01/10/19 18:03 Surgical Pathology [PTH] Routine Date of Encounter: 01/11/19 General Surgery Exam Initial Vital Signs Temp Pulse Resp BP Pulse Ox 98.0 F 113 16 148/91 96 01/09/19 16:15 01/09/19 16:15 01/09/19 16:15 01/09/19 16:15 01/09/19 16:15 - Hospital Course Hospital course: Mr. Davidson is a 48 year old male - Time Spent with Patient Total time spent providing and/or coordinating discharge services: Date of admission: 01/09/19 18:06 Primary care physician: PCP NONE Labs on day of discharge: Labs from last 24 hours 01/10/19 01/10/19 12:08 05:14 POC Glucose 83 102 H - Impressions ITS Impressions Abdomen/Pelvis CT 01/09/19 16:38 IMPRESSION: 1. Some distention of the gallbladder, cholelithiasis and gallbladder wall thickening raises the possibility of acute cholecystitis. 2. Diffuse fatty infiltration of the liver. 3. No acute gastrointestinal abnormality. 4. Right lower lobe infiltrate/atelectasis. Minimal atelectasis left lower lobe. RECOMMENDATIONS: Gallbladder ultrasound. D/ / 01/09/2019 17:13:54 Rylee Lowe MD / jose carlos Interpreting Provider: Rylee Lowe MD Cholangiogram,Operative 01/10/19 17:25 IMPRESSION: Small filling defect in the cystic duct of uncertain significance. Critical results were called by Dr. Kevin Pascual MD to Gaudencio Juarez MD on 01/10/2019 at 18:00. D/ / 01/10/2019 18:01:14 Kevin Pascual MD / amberly Interpreting Provider: Kevin Pascual MD - Attending Attestation I examined this patient and my medical decision-making was reviewed with the BARREL BANDER. I agree with the documented findings, disposition and treatment plan as described to the extent set forth below. Pt condition is satisfactory for DC home POD#1 Robotic cholecystectomy. Pt scheduled for f/u in [facility] clinic.
[2019-01-11] MEDS ORDERED: Nicotine 7 MG PATCH.TD24 TD SCH (09:00)
[2019-01-11] MEDS: *HR* Metoprolol 5 MG/5 ML VIAL IVP PRN (09:58)
== END 2019-01-11 11:23 | disposition home or self-care (01) ==
LOC: 3ANU 16:11 → EMEROOARM 16:11 → 3ANU 18:46
PROVIDERS: ADMIT Surgery; ATTEND Surgery